=== PATIENT | female | born 1965 | race Caucasian/White ===

== ENCOUNTER → 2018-06-04 | Outpatient (CLI) | payer OTHER ==
[~2018-06-04] MED LIST: ALPR1 PO; CEPH500 PO; CYCL10 PO; DIAZ5 PO; HYDACE10B PO; HYDACE5 PO; Norco 5-325 Ta1 EACH PO; RXCYCL10 PO; SERT100 PO; SULTRIDS PO
== END ==
LOC: LAB 18:46 → LAB SHORT 18:46
PROVIDERS: Registered Nurse
DX: Z12.4 Encounter for screening for malignant neoplasm of cervix (principal)
CPT/HCPCS: 87624; G0123

== ENCOUNTER → 2024-12-15 | Outpatient (CLI) | payer OTHER | LOC: LAB SHORT 15:22 → LAB 15:22 | DX: N87.9 Dysplasia of cervix uteri, unspecified (principal); Z87.42 Personal history of other diseases of the female genital tract | CPT/HCPCS: 88305 ==